=== PATIENT | female | born 1960 | race Caucasian/White ===

== ENCOUNTER 2021-03-23 12:18 | Emergency (ER) | payer SELFPAY ==
[~2021-03-23] VITALS: Ht 154.9 cm; Wt 68.2 kg
[2021-03-23 12:54] VITALS: TEMP 98.3
[2021-03-23] MEDS ORDERED: DOXYCYCLINE 10100 MG PO (13:41)
[2021-03-23 13:50] VITALS: BP 157/91; PULSE 66
== END 2021-03-23 13:50 | disposition home or self-care (01) ==
LOC: COL.ER 12:18
DX: S60.460A Insect bite (nonvenomous) of right index finger, initial encounter (principal); L03.011 Cellulitis of right finger; W57.XXXA Bitten or stung by nonvenomous insect and other nonvenomous arthropods, initial encounter

== ENCOUNTER 2021-05-19 01:22 | Emergency (ER) | payer MEDICAID ==
[~2021-05-19] VITALS: Ht 154.9 cm; Wt 67.3 kg
[~2021-05-19 01:22] MED LIST: DOXYCYCLINE 10100 MG PO
[2021-05-19 01:36] VITALS: BP 117/85; TEMP 98.1
[2021-05-19 02:30] LABS: BASO # 0.1 K/mm3 (0.0-0.2); BASO % 0.5 % (0.0-2.0); EOS # 0.3 K/mm3 (0.0-0.7); EOS % 2.4 % (0.0-4.0); HEMATOCRIT 39.7 % (37.0-47.0); HEMOGLOBIN 13.8 g/dl (12.5-16.0); LYMPH # 2.8 K/mm3 (1.2-3.4); LYMPH % 24.7 % (20.0-51.0); MEAN CELL VOLUME 87 fl (80.0-100.0); MEAN CORPUSCULAR HEMOGLOBIN 30 pg (27-31); MEAN CORPUSCULAR HGB CONC 35 g/dl (33.0-37.0); MEAN PLATELET VOLUME 10.1 fl (7.4-10.4); MONO # 1.1 K/mm3 (0.1-0.6); MONO % 9.9 % (1.7-9.3); PLATELET COUNT 388 K/mm3 (130-400); RED BLOOD COUNT 4.58 M/mm3 (4.10-5.30); REDCELL DISTRIBUTION WIDTH-CV 12.2 % (11.5-14.5)
[2021-05-19 02:51] LABS: ALBUMIN 3.8 gm/dL (3.4-4.8); BILIRUBIN,TOTAL 0.9 mg/dL (0.2-1.2); CALCIUM 9.9 mg/dL (8.4-10.2); CREATININE, serum 0.98 mg/dL (0.57-1.11); POTASSIUM 4.2 mmol/L (3.5-4.5); TOTAL PROTEIN 7.9 gm/dL (6.2-8.1)
[2021-05-19] MEDS ORDERED: NORCO 325 MG-51 TAB PO (06:01)
[2021-05-19 06:35] VITALS: PULSE 85
== END 2021-05-19 06:35 ==
LOC: COL.ER 01:22
PROVIDERS: Personal Emergency Response Attendant
DX: R51.9 Headache, unspecified (principal); M54.6 Pain in thoracic spine; Z85.850 Personal history of malignant neoplasm of thyroid; Z85.118 Personal history of other malignant neoplasm of bronchus and lung; Z87.891 Personal history of nicotine dependence
CPT/HCPCS: J1200; J1790; J2270; J2405; J7030; Q9967

== ENCOUNTER 2021-05-25 06:24 | Emergency (ER) | payer MEDICAID ==
[~2021-05-25] VITALS: Ht 154.9 cm; Wt 67.3 kg
[~2021-05-25 06:24] MED LIST changes: +NORCO 325 MG-51 TAB PO
[2021-05-25 06:32] VITALS: TEMP 97.8
[2021-05-25 07:01] LABS: BASO # 0.1 K/mm3 (0.0-0.2); BASO % 0.6 % (0.0-2.0); EOS # 0.3 K/mm3 (0.0-0.7); EOS % 2.5 % (0.0-4.0); GRAN # 7.4 K/mm3 (1.4-6.5); GRAN % 64.6 % (42.2-75.2); HEMATOCRIT 40.9 % (37.0-47.0); HEMOGLOBIN 14.3 g/dl (12.5-16.0); LYMPH # 2.4 K/mm3 (1.2-3.4); LYMPH % 21.1 % (20.0-51.0); MEAN CELL VOLUME 85 fl (80.0-100.0); MEAN CORPUSCULAR HEMOGLOBIN 30 pg (27-31); MEAN CORPUSCULAR HGB CONC 35 g/dl (33.0-37.0); MEAN PLATELET VOLUME 9.5 fl (7.4-10.4); MONO # 1.2 K/mm3 (0.1-0.6); MONO % 10.4 % (1.7-9.3); PLATELET COUNT 443 K/mm3 (130-400); RED BLOOD COUNT 4.79 M/mm3 (4.10-5.30)
[2021-05-25 07:18] LABS: ALANINE AMINOTRANSFERASE 23 U/L (0-55); ALBUMIN 3.8 gm/dL (3.4-4.8); ALKALINE PHOSPHATASE 160 U/L (40-150); AST,SGOT 31 U/L (5-34); BILIRUBIN,TOTAL 0.8 mg/dL (0.2-1.2); BLOOD UREA NITROGEN 17 mg/dL (10-20); CALCIUM 10.4 mg/dL (8.4-10.2); CARBON DIOXIDE 22 mmol/L (23-31); CHLORIDE 103 mmol/L (98-107); CREATININE, serum 0.88 mg/dL (0.57-1.11); GLUCOSE 99 mg/dL (70-99); POTASSIUM 4.3 mmol/L (3.5-4.5); SODIUM 139 mmol/L (136-145); TOTAL PROTEIN 8.2 gm/dL (6.2-8.1)
[2021-05-25 07:20] LABS: ACETAMINOPHEN < 1.0 ug/mL (10-30); ALCOHOL(ethanol),MEDICAL < 10 mg/dL (0-10); SALICYLATE < 5.0 mg/dL (15.0-30.0)
[2021-05-25 07:22] LABS: ANION GAP 14 mmol/L (7-16)
[2021-05-25 08:06] LABS: COLLECTION METHOD CLEAN CATCH
[2021-05-25 08:22] LABS: TRICYCLIC ANTIDEPRESS URINE NEGATIVE
[2021-05-25 08:23] LABS: MUCOUS Present (NOT PRESENT); URINE BACTERIA Rare /hpf (NONE SEEN); URINE RBC None Seen /hpf (0-2)
[2021-05-25 08:24] LABS: PH 6 (5-8); URINE APPEARANCE Hazy (CLEAR/HAZY); URINE BILIRUBIN Negative (NEGATIVE); URINE BLOOD Negative (NEGATIVE); URINE COLOR Colorless (YELLOW); URINE GLUCOSE Negative (NEGATIVE); URINE KETONE Negative (NEGATIVE); URINE LEUKOCYTE ESTERASE Negative (NEGATIVE); URINE PROTEIN(semi-quant) Negative (NEGATIVE); URINE UROBILINOGEN Negative (NEGATIVE)
[2021-05-25 08:25] LABS: URINE NITRATE Negative (NEGATIVE)
[2021-05-25 12:30] VITALS: BP 120/61; PULSE 80
== END 2021-05-25 12:30 | disposition home or self-care (01) ==
LOC: COL.ER 06:24
PROVIDERS: Emergency Medicine
DX: R51.9 Headache, unspecified (principal); Z85.850 Personal history of malignant neoplasm of thyroid; Z85.118 Personal history of other malignant neoplasm of bronchus and lung
CPT/HCPCS: J1100; J1200; J1885; J2765; J7030

== ENCOUNTER 2021-06-01 00:48 | Emergency (ER) | payer MEDICAID ==
[~2021-06-01] VITALS: Ht 154.9 cm; Wt 67.3 kg
[2021-06-01 02:00] VITALS: TEMP 97.9
[2021-06-01 02:57] LABS: COLLECTION METHOD CLEAN CATCH
[2021-06-01 02:59] LABS: HEMATOCRIT 42.3 % (37.0-47.0); HEMOGLOBIN 14.5 g/dl (12.5-16.0); MEAN CELL VOLUME 87 fl (80.0-100.0); MEAN CORPUSCULAR HEMOGLOBIN 30 pg (27-31); MEAN CORPUSCULAR HGB CONC 34 g/dl (33.0-37.0); MEAN PLATELET VOLUME 9.7 fl (7.4-10.4); PLATELET COUNT 458 K/mm3 (130-400); RED BLOOD COUNT 4.85 M/mm3 (4.10-5.30); REDCELL DISTRIBUTION WIDTH-CV 12.1 % (11.5-14.5)
[2021-06-01 03:04] LABS: MUCOUS Present (NOT PRESENT); PH 5 (5-8); URINE APPEARANCE Cloudy (CLEAR/HAZY); URINE BACTERIA Occasional /hpf (NONE SEEN); URINE BILIRUBIN Negative (NEGATIVE); URINE BLOOD Negative (NEGATIVE); URINE COLOR Yellow (YELLOW); URINE GLUCOSE Negative (NEGATIVE); URINE KETONE 1+ (NEGATIVE); URINE LEUKOCYTE ESTERASE Negative (NEGATIVE); URINE NITRATE Negative (NEGATIVE); URINE PROTEIN(semi-quant) Negative (NEGATIVE); URINE RBC 0-2 /hpf (0-2); URINE UROBILINOGEN Negative (NEGATIVE)
[2021-06-01] MEDS ORDERED: INDERAL 20MG20 MG PO (03:08)
[2021-06-01 03:10] LABS: TRICYCLIC ANTIDEPRESS URINE NEGATIVE
[2021-06-01 03:18] LABS: ALANINE AMINOTRANSFERASE 37 U/L (0-55); ALKALINE PHOSPHATASE 183 U/L (40-150); ANION GAP 15 mmol/L (7-16); AST,SGOT 39 U/L (5-34); BLOOD UREA NITROGEN 19 mg/dL (10-20); CALCIUM 10.4 mg/dL (8.4-10.2); CARBON DIOXIDE 21 mmol/L (23-31); CHLORIDE 100 mmol/L (98-107); GLUCOSE 105 mg/dL (70-99); POTASSIUM 4.3 mmol/L (3.5-4.5); SODIUM 136 mmol/L (136-145); TOTAL PROTEIN 8.2 gm/dL (6.2-8.1)
[2021-06-01 03:22] LABS: LYMPHOCYTE 20 % (20.0-51.0); NEUTROPHILS 68 % (42.0-75.2); PLATELET ESTIMATE INCREASED (NORMAL)
[2021-06-01 04:09] LABS: ACETAMINOPHEN < 1.0 ug/mL (10-30); ALCOHOL(ethanol),MEDICAL < 10 mg/dL (0-10); SALICYLATE < 5.0 mg/dL (15.0-30.0)
[2021-06-01] MEDS ORDERED: NORCO 325 MG-51 TAB PO (10:21)
--- NOTE | 2021-06-01 10:28 | NUR ---
Cleaning Team Member met with patient in response to social media content specialist consult for patient in need of mental health resources. Patient lives in [place] with her brother in law, Nagi (ph#[phone]) and sees Dr. Tyler Rogers for primary care. Patient also sees Oncologist, Dr. Bradley for her cancer diagnosis. SW addressed patient's suicidal ideations and patient states she only has these suicidal thoughts when she is in an extraordinary about of pain, which she been dealing with recently. Patient states she is not normally suicidal and does not have a history of suicidal ideations. Patient states she "is not afraid to end her own life" if they pain gets so severe she cannot handle it. Patient reports she is not in severe pain at this time and does not have any thoughts of suicide. SW asked patient if she has a history of anxiety or depression and patient states everyone gets depressed sometimes. SW reviewed mental health resources available to her and provided a [facility] resource guide. Patient does not feel she needs counseling at this time, just more pain management. SW discussed DPOA-HC with patient who reports she is currently , but from her . Patient states she does not want her making any medical decisions for her. Patient would like to complete DPOA-HC form. SW assisted patient with the form and patient chose to desigate her brother in law, Nagi. FRANKY and ED staff provided witness signature. SW provided original and copies to patient then placed a copy on patient's chart. FRANKY collaborated the above information to ED provider.
[2021-06-01 10:37] VITALS: BP 133/91; PULSE 97
== END 2021-06-01 10:52 | disposition home or self-care (01) ==
LOC: COL.ER 00:48
PROVIDERS: Student in an Organized Health Care Education/Training Program
DX: R51.9 Headache, unspecified (principal); C79.51 Secondary malignant neoplasm of bone; Z20.822 Contact with and (suspected) exposure to COVID-19
CPT/HCPCS: J1100; J1885; J2765; J7030

== ENCOUNTER 2021-06-02 12:53 | Emergency (ER) | payer MEDICAID ==
[~2021-06-02] VITALS: Ht 162.6 cm; Wt 59.1 kg
[~2021-06-02 12:53] MED LIST changes: +INDERAL 20MG20 MG PO
[2021-06-02 14:14] LABS: HEMATOCRIT 37.4 % (37.0-47.0); HEMOGLOBIN 12.6 g/dl (12.5-16.0); MEAN CELL VOLUME 88 fl (80.0-100.0); MEAN CORPUSCULAR HEMOGLOBIN 30 pg (27-31); MEAN CORPUSCULAR HGB CONC 34 g/dl (33.0-37.0); MEAN PLATELET VOLUME 10.2 fl (7.4-10.4); PLATELET COUNT 437 K/mm3 (130-400); RED BLOOD COUNT 4.26 M/mm3 (4.10-5.30); REDCELL DISTRIBUTION WIDTH-CV 12.4 % (11.5-14.5)
[2021-06-02 14:39] LABS: ALANINE AMINOTRANSFERASE 53 U/L (0-55); ALBUMIN 3.5 gm/dL (3.4-4.8); ALKALINE PHOSPHATASE 159 U/L (40-150); ANION GAP 11 mmol/L (7-16); AST,SGOT 45 U/L (5-34); BILIRUBIN,TOTAL 0.4 mg/dL (0.2-1.2); BLOOD UREA NITROGEN 20 mg/dL (10-20); CALCIUM 9.3 mg/dL (8.4-10.2); CARBON DIOXIDE 21 mmol/L (23-31); CHLORIDE 107 mmol/L (98-107); GLUCOSE 79 mg/dL (70-99); POTASSIUM 3.9 mmol/L (3.5-4.5); SODIUM 139 mmol/L (136-145); TOTAL PROTEIN 7.2 gm/dL (6.2-8.1)
[2021-06-02 14:42] LABS: ALCOHOL(ethanol),MEDICAL < 10 mg/dL (0-10); SALICYLATE < 5.0 mg/dL (15.0-30.0)
[2021-06-02 14:54] LABS: BAND 5 % (0-10); EOSINOPHIL 3 % (0-4); LYMPHOCYTE 32 % (20.0-51.0); METAMYELOCYTE 2 % (0-0); NEUTROPHILS 46 % (42.0-75.2); PLATELET ESTIMATE INCREASED (NORMAL)
[2021-06-02 14:58] LABS: TSH w REFLEX 6.252 uIU/mL (0.350-4.940)
[2021-06-02 15:04] LABS: CREATININE, serum 0.79 mg/dL (0.57-1.11)
[2021-06-02 17:14] LABS: COLLECTION METHOD CLEAN CATCH
[2021-06-02 17:25] LABS: MUCOUS Present (NOT PRESENT); PH 5 (5-8); SQUAMOUS EPITHELIAL 0-2 /hpf (0-10); URINE APPEARANCE Hazy (CLEAR/HAZY); URINE BACTERIA Many /hpf (NONE SEEN); URINE BILIRUBIN Negative (NEGATIVE); URINE BLOOD Negative (NEGATIVE); URINE COLOR Yellow (YELLOW); URINE GLUCOSE Negative (NEGATIVE); URINE KETONE Negative (NEGATIVE); URINE LEUKOCYTE ESTERASE Negative (NEGATIVE); URINE NITRATE Positive (NEGATIVE); URINE PROTEIN(semi-quant) Negative (NEGATIVE); URINE RBC 0-2 /hpf (0-2); URINE UROBILINOGEN Negative (NEGATIVE)
[2021-06-02 23:42] LABS: TRICYCLIC ANTIDEPRESS URINE NEGATIVE
--- NOTE | 2021-06-03 10:15 | NUR ---
take away worker confirmed that patient does not have Medicare and does have [employer]. Worker contacted Dalia at [facility] and advised of the above information Dalia states they only take patients with medicare. Worker contacted [facility] and confirmed that they have made all referals to the [facility]. Worker collaborated with patient's emergency room nurse regarding the above information.
[2021-06-03 14:36] VITALS: BP 140/90; PULSE 82; TEMP 97.2
== END 2021-06-03 15:10 ==
LOC: COL.ER 12:53
PROVIDERS: Emergency Medicine
DX: M54.9 Dorsalgia, unspecified (principal); M25.571 Pain in right ankle and joints of right foot; M25.572 Pain in left ankle and joints of left foot; D72.821 Monocytosis (symptomatic); C78.00 Secondary malignant neoplasm of unspecified lung; Z20.822 Contact with and (suspected) exposure to COVID-19